=== PATIENT | female | born 1980 | race Caucasian/White ===

== ENCOUNTER 2019-05-04 17:48 | Emergency (ER) | payer MEDICAID ==
[~2019-05-04] VITALS: Ht 157.5 cm; Wt 59.2 kg
[2019-05-04 18:02] VITALS: BP 125/87
--- NOTE | 2019-05-04 19:50 | NUR ---
PT CAME TO ER C/O EPIGASTRIC PAIN SINCE 10AM. PAIN LEVEL 8/10, COMES AND GOES, BURNING SENSATION RADIATING TO LOWER BACK. PT HAS NAUSEA. NO V/D. LAST BM TODAY 04/03/19. PT DENIES BURNING UPON URINATION. NKA. MED HX: HYPOTHYROIDISM. SAFETY MEASURES IN PLACE. WAITING FOR ERMD TO EVALUATE PT.
--- NOTE | 2019-05-04 19:50 | NUR ---
PT AMBULATED TO BED 09
--- NOTE | 2019-05-04 20:17 | NUR ---
ERMD AT BEDSIDE
[2019-05-04] MEDS ORDERED: DICYCLOMINE HCL LIQUID 20 MG, ALUMINUM HYD/MAG/SIMETHICONE 30 ML, LIDOCAINE VISCOUS 2% ... PO ONE ×3 (20:20)
--- NOTE | 2019-05-04 21:04 | NUR ---
PT STATED "ABDOMINAL PAIN DECREASED, PAIN LEVEL 4/10"
[2019-05-04] MEDS ORDERED: FAMOTIDINE 20 MG TAB PO ONE (21:05)
[2019-05-04 21:15] VITALS: BP 125/79
--- NOTE | 2019-05-04 21:15 | NUR ---
Patient discharged with v/s stable. Written and verbal after care instructions given and explained. Pt encouraged to avoid spicy, greasy and fatty foods. Patient alert, oriented and verbalized understanding of instructions. Ambulatory with steady gait. All questions addressed prior to discharge. ID band removed. Patient advised to follow up with PMD. Rx of rANITIDINE was given. Patient educated on indication of medication including possible reaction and side effects. Opportunity to ask questions provided and answered.
== END 2019-05-04 21:15 | disposition home or self-care (01) ==
LOC: MED 17:48
DX: K29.70 Gastritis, unspecified, without bleeding (principal); E03.9 Hypothyroidism, unspecified
CPT/HCPCS: 81002; 81025; 99283

== ENCOUNTER 2022-03-19 15:13 | Emergency (ER) | payer MEDICAID ==
[~2022-03-19] VITALS: Ht 154.9 cm; Wt 60.8 kg
[2022-03-19 15:18] VITALS: BP 143/101
--- NOTE | 2022-03-19 15:59 | NUR ---
PT AMBULATORY TO BED 11
--- NOTE | 2022-03-19 16:00 | NUR ---
41YO FEMALE PT C/O ACHING/TIGHT / EPIGASTRIC X2 DAYS. PT HAS INCONSISTENT PAIN WITH OCCASIONAL PAIN IN NECK . PT STATES NAUSEA , DENIES V/D, CHEST PAIN OR SOB. ABDOMEN NON DISTENDED OR TENDER, ACTIVE X4. NOTES HESITENCY , DENIES DYSURIA OR RETENTION. STATES RELIEF AFTER TAKING PEPTO .NO VISIBLE INJURY TO NECK. PT AAOX4, NO VISIBLE DISTRESS, RESPIRATIONS EVEN AND UNLABORED. NKA
--- NOTE | 2022-03-19 16:06 | NUR ---
DR FRANICSCO AT BEDSIDE FOR EVAL
[2022-03-19] MEDS ORDERED: KETOROLAC 60 MG/2 ML VIAL IM ONE (16:10)
[2022-03-19] MEDS ORDERED: ONDANSETRON 4 MG ODT PO ONE (16:10)
[2022-03-19] MEDS ORDERED: IBUP-2213 PO (16:20)
[2022-03-19] MEDS ORDERED: OMEP40EC24 PO (16:20)
[2022-03-19] MEDS ORDERED: ONDA8TAB87 PO (16:20)
[2022-03-19 16:55] VITALS: BP 131/63
--- NOTE | 2022-03-19 16:55 | NUR ---
Patient discharged with v/s stable. Written and verbal after care instructions FOR NAUSEA, GENERAL HEADACHE AND ABDOMINAL PAIN given and explained. Patient alert, oriented and verbalized understanding of instructions. Ambulatory with steady gait. All questions addressed prior to discharge. ID band removed. Patient advised to follow up with PMD. Rx of IBUPROFEN, PRILOSEC, AND ZOFRAN given. Opportunity to ask questions provided and answered.
== END 2022-03-19 16:55 | disposition home or self-care (01) ==
LOC: MED 15:13
DX: R10.9 Unspecified abdominal pain (principal); R51.9 Headache, unspecified; R11.0 Nausea; M54.50 Low back pain, unspecified; E03.9 Hypothyroidism, unspecified; Z98.890 Other specified postprocedural states
CPT/HCPCS: 81002; 81025; 96372; 99283; J1885; Q0162